=== PATIENT | female | born 1985 | race Caucasian/White ===

== ENCOUNTER 2019-06-26 23:12 | Observation (INO) | payer MEDICAID ==
[~2019-06-26] VITALS: Ht 165.1 cm; Wt 130.2 kg
[2019-06-27] MEDS ORDERED: PNV1TABL76 MT (00:43)
== END 2019-06-27 00:59 | disposition home or self-care (01) ==
LOC: 8 EST LDRP 23:12
PROVIDERS: ADMIT Obstetrics & Gynecology; ATTEND Obstetrics & Gynecology
DX: O36.8130 Decreased fetal movements, third trimester, not applicable or unspecified (principal); Z3A.34 34 weeks gestation of pregnancy
CPT/HCPCS: 76815; 76818; 99281; G0378

== ENCOUNTER 2019-07-18 09:49 | Observation (INO) | payer MEDICAID ==
[~2019-07-18] VITALS: Ht 160 cm; Wt 133.8 kg
[~2019-07-18 09:49] MED LIST: PNV1TABL76 MT
[2019-07-18] MEDS ORDERED: LACTATED RINGERS 1,000 ML IV SCH (10:45)
[2019-07-18 11:32] LABS: BASOPHILS % 0.6 % (0.0-2.0); EOSINOPHILS % 1.6 % (0.0-5.0); HEMATOCRIT. 31.3 % (36.0-48.0); HEMOGLOBIN. 10.2 g/dL (12.0-16.0); LYMPHOCYTES % 17.7 % (20.0-50.0); MEAN CORPUSCULAR HEMOGLOBIN 25.4 pg (28.0-32.0); MEAN CORPUSCULAR VOLUME 77.8 fL (81.0-99.0); MEAN PLATELET VOLUME 8.9 fl (7.4-10.4); MONOCYTES % 6.2 % (2.0-8.0); NEUTROPHILS % 73.9 % (40.0-76.0); PLATELET 345 x1000/uL (130-400); RED BLOOD CELL COUNT 4.03 mill/uL (4.2-5.4); RED CELL DISTRIBUTION WIDTH 15.9 % (11.6-14.6)
[2019-07-18 11:46] LABS: CLARITY URINE CLOUDY (CLEAR); COLOR URINE YELLOW (YELLOW); KETONES URINE 2+ (NEGATIVE); LEUKOCYTE ESTERASE URINE TRACE (NEGATIVE); NITRITE URINE NEGATIVE (NEGATIVE); OCCULT BLOOD URINE NEGATIVE (NEGATIVE); PH URINE 5.5 (4.5-8.0); PROTEIN URINE 1+ (NEGATIVE); SPECIFIC GRAVITY URINE 1.021 (1.005-1.030)
[2019-07-18 12:00] LABS: D-DIMER 2.89 mg/L FEU (<0.50); INR 0.8; PROTHROMBIN TIME 9.2 sec (9.6-11.0)
[2019-07-18 12:20] LABS: CHLORIDE 112 mEq/L (98-107)
== END 2019-07-18 13:05 | disposition home or self-care (01) ==
LOC: 8 EST LDRP 09:49
PROVIDERS: ADMIT Obstetrics & Gynecology; ATTEND Obstetrics & Gynecology
DX: O13.3 Gestational [pregnancy-induced] hypertension without significant proteinuria, third trimester (principal); Z3A.37 37 weeks gestation of pregnancy
CPT/HCPCS: 36415; 76805; 76818; 80053; 81003; 84550; 85025; 85379; 85384; 85610; 85730; 99281; G0378; 96360; 96361

== ENCOUNTER 2019-07-20 07:10 | Inpatient (IN) | payer MEDICAID ==
[~2019-07-20] VITALS: Ht 160 cm; Wt 131.5 kg
[2019-07-20] MEDS ORDERED: LACTATED RINGERS 1,000 ML IV SCH (07:29)
[2019-07-20] MEDS ORDERED: RHO(D) IMMUNE GLOBULIN 300 MCG/SYR IM NR (07:30)
[2019-07-20] MEDS ORDERED: GLYCOPYRROLATE 0.2 MG/ML 2ML VIAL ONE (08:04)
[2019-07-20] MEDS ORDERED: EPHEDRINE SULFATE 50MG/ML VIAL ONE (08:04)
[2019-07-20] MEDS ORDERED: PHENYLEPHRINE HCL 10 MG/ML 1ML (IV VIAL) IV ONE (08:04)
[2019-07-20] MEDS ORDERED: ONDANSETRON HCL 4MG/2ML INJ ONE (08:04)
[2019-07-20] MEDS ORDERED: OXYTOCIN 10 UNITS/ML 1ML ONE (08:04)
[2019-07-20] MEDS ORDERED: MORPHINE SULFATE/PF 1MG/ML 10ML AMP ONE (08:04)
[2019-07-20] MEDS ORDERED: FENTANYL CITRATE/PF 50MCG/ML 2ML VIAL ONE (08:04)
[2019-07-20] MEDS ORDERED: CEFAZOLIN SODIUM 1000MG/VIAL ONE ×2 (08:05→08:50)
[2019-07-20] MEDS ORDERED: STERILE WATER FOR INJECTION 10ML VIAL ONE (08:06)
[2019-07-20] MEDS ORDERED: CITRIC ACID/SODIUM CITRATE SOLN 30ML UDC PO NR (08:15)
[2019-07-20 08:28] LABS: BASOPHILS % 0.7 % (0.0-2.0); EOSINOPHILS % 1.4 % (0.0-5.0); HEMATOCRIT. 31.2 % (36.0-48.0); HEMOGLOBIN. 10.1 g/dL (12.0-16.0); MEAN CORPUSCULAR HEMOGLOBIN 24.8 pg (28.0-32.0); MEAN CORPUSCULAR VOLUME 76.6 fL (81.0-99.0); MEAN PLATELET VOLUME 8.9 fl (7.4-10.4); MONOCYTES % 6.4 % (2.0-8.0); NEUTROPHILS % 72.5 % (40.0-76.0); PLATELET 332 x1000/uL (130-400); RED BLOOD CELL COUNT 4.07 mill/uL (4.2-5.4); RED CELL DISTRIBUTION WIDTH 15.8 % (11.6-14.6)
[2019-07-20 08:37] LABS: INR 0.9; PARTIAL THROMBOPLASTIN TIME 28.8 sec (23.4-31.0); PROTHROMBIN TIME 9.4 sec (9.6-11.0)
[2019-07-20] MEDS ORDERED: METOCLOPRAMIDE HCL 10MG/2ML VIAL ONE (09:09)
[2019-07-20] MEDS ORDERED: KETOROLAC 60MG/2ML VIAL IM ONE (09:25)
[2019-07-20] MEDS ORDERED: DIPHENHYDRAMINE 50MG/ML VIAL ONE (09:25)
[2019-07-20] MEDS ORDERED: DEXT 5%/LR + PITOCIN 20UNITS/L 1,000 ML IV SCH (09:52)
[2019-07-20] MEDS ORDERED: RHO(D) IMMUNE GLOBULIN 300 MCG/SYR IM PRN (10:00)
[2019-07-20] MEDS ORDERED: DIPHENHYDRAMINE 25MG CAPSULE PO PRN (10:00)
[2019-07-20] MEDS ORDERED: LANOLIN OINT 7GM TUBE TOP PRN (10:00)
[2019-07-20] MEDS ORDERED: HYDROCODONE/ACETAMINOPHEN 5/325MG TABLET PO PRN (10:00)
[2019-07-20] MEDS ORDERED: IBUPROFEN 400MG TABLET PO PRN (10:00)
[2019-07-20] MEDS ORDERED: BISACODYL 10MG SUPP PR PRN (10:00)
[2019-07-20] MEDS ORDERED: ONDANSETRON HCL 4MG/2ML INJ IV PRN (10:00)
[2019-07-20] MEDS ORDERED: HEMORRHOIDAL SUPP PR PRN (10:00)
[2019-07-20] MEDS ORDERED: DIPHENHYDRAMINE 50MG/ML VIAL IV PRN (10:45)
[2019-07-20] MEDS: KETOROLAC 30MG/ML VIAL IV SCH ×2 (10:45→17:15)
[2019-07-20] MEDS ORDERED: NALOXONE HCL 0.4 MG/ML 1ML VIAL IV PRN (10:45)
[2019-07-20] MEDS ORDERED: BUTORPHANOL TARTRATE 2 MG/ML VIAL IV PRN (10:45)
[2019-07-20] MEDS ORDERED: CEFAZOLIN 2,000 MG in DEXT 5% WATER 100 ML IV SCH (11:00)
[2019-07-20 11:20] LABS: HEPATITIS B SURFACE ANTIGEN NEGATIVE
[2019-07-20 11:45] VITALS: BP 103/69
[2019-07-20 12:15] VITALS: BP 110/51
[2019-07-20] MEDS: MAGNESIUM/ALUMINUM HYDROXIDE/SIMETHICONE 30ML UDC PO SCH ×3 (12:30→21:51)
[2019-07-20 13:00] VITALS: BP 110/59
[2019-07-20] MEDS: SIMETHICONE 80MG TABLET CHEW PO SCH ×3 (13:00→21:51)
[2019-07-20 14:54] LABS: CLARITY URINE CLEAR (CLEAR); COLOR URINE YELLOW (YELLOW); KETONES URINE 3+ (NEGATIVE); LEUKOCYTE ESTERASE URINE NEGATIVE (NEGATIVE); NITRITE URINE NEGATIVE (NEGATIVE); OCCULT BLOOD URINE 2+ (NEGATIVE); PH URINE 5.5 (4.5-8.0); PROTEIN URINE 2+ (NEGATIVE); SPECIFIC GRAVITY URINE 1.025 (1.005-1.030)
[2019-07-20 15:28] LABS: *AMPHETAMINES SCREEN URINE NEGATIVE (NEGATIVE); *BARBITURATES SCREEN URINE NEGATIVE (NEGATIVE); *BENZODIAZEPINES SCREEN URINE NEGATIVE (NEGATIVE); *COCAINE SCREEN URINE NEGATIVE (NEGATIVE); METHADONE URINE SCREEN NEGATIVE (NEGATIVE); OPIATES URINE SCREEN NEGATIVE (NEGATIVE)
[2019-07-20 15:29] LABS: CANNABINOID URINE SCREEN NEGATIVE (NEGATIVE); PHENCYCLIDINE URINE SCREEN NEGATIVE (NEGATIVE)
[2019-07-20] MEDS ORDERED: TETANUS, DIPHTHERIA, PERTUSSIS VAC/PF 0.5ML (>7YR OLD) IM ONE (17:15)
[2019-07-20 19:50] VITALS: BP 104/65
[2019-07-20] MEDS: DOCUSATE SODIUM 100MG CAPSULE PO SCH (21:51)
[2019-07-21] MEDS ORDERED: KETOROLAC 30MG/ML VIAL IV SCH (00:45)
[2019-07-21 04:20] VITALS: BP 109/64
[2019-07-21 06:37] LABS: BASOPHILS % 0.4 % (0.0-2.0); EOSINOPHILS % 1.6 % (0.0-5.0); HEMOGLOBIN. 9.1 g/dL (12.0-16.0); LYMPHOCYTES % 15.9 % (20.0-50.0); MEAN CORPUSCULAR HEMOGLOBIN 25.7 pg (28.0-32.0); MEAN CORPUSCULAR VOLUME 76.3 fL (81.0-99.0); MEAN PLATELET VOLUME 9.2 fl (7.4-10.4); MONOCYTES % 7.2 % (2.0-8.0); NEUTROPHILS % 74.9 % (40.0-76.0); PLATELET 272 x1000/uL (130-400); RED BLOOD CELL COUNT 3.54 mill/uL (4.2-5.4); RED CELL DISTRIBUTION WIDTH 15.8 % (11.6-14.6)
[2019-07-21 07:45] VITALS: BP 127/76
[2019-07-21] MEDS: MAGNESIUM/ALUMINUM HYDROXIDE/SIMETHICONE 30ML UDC PO SCH ×4 (08:15→22:03)
[2019-07-21] MEDS: SIMETHICONE 80MG TABLET CHEW PO SCH ×4 (08:15→22:03)
[2019-07-21] MEDS: FERROUS SULFATE 325MG TABLET PO SCH ×3 (08:15→17:59)
[2019-07-21] MEDS: PRENATAL VIT/FE FUMARATE/FA TABLET PO SCH (08:15)
[2019-07-21] MEDS: IBUPROFEN 800MG TABLET PO PRN (14:52)
[2019-07-21 15:17] VITALS: BP 107/56
[2019-07-21 20:00] VITALS: BP 123/75
[2019-07-21] MEDS: DOCUSATE SODIUM 100MG CAPSULE PO SCH (22:03)
[2019-07-22 07:45] VITALS: BP 106/79
[2019-07-22] MEDS: SIMETHICONE 80MG TABLET CHEW PO SCH (08:05)
[2019-07-22] MEDS: FERROUS SULFATE 325MG TABLET PO SCH (08:05)
[2019-07-22] MEDS: IBUPROFEN 800MG TABLET PO PRN (08:05)
[2019-07-22] MEDS: PRENATAL VIT/FE FUMARATE/FA TABLET PO SCH (08:05)
[2019-07-22] MEDS: MAGNESIUM/ALUMINUM HYDROXIDE/SIMETHICONE 30ML UDC PO SCH (08:06)
== END 2019-07-22 11:15 | disposition home or self-care (01) | DRG 540 ==
LOC: 8 EST LDRP 07:10 → OBSVTOIN 07:10 → 8EST 11:31
PROVIDERS: ADMIT Obstetrics & Gynecology; ATTEND Obstetrics & Gynecology
PROC: 10D00Z1 Extraction of Products of Conception, Low, Open Approach (ICD-10-PCS; principal; 2019-07-20)
PROC: 0UB70ZZ Excision of Bilateral Fallopian Tubes, Open Approach (ICD-10-PCS; 2019-07-20)
DX: O34.211 Maternal care for low transverse scar from previous cesarean delivery (principal); D62 Acute posthemorrhagic anemia; O24.429 Gestational diabetes mellitus in childbirth, unspecified control; O36.63X0 Maternal care for excessive fetal growth, third trimester, not applicable or unspecified; O99.214 Obesity complicating childbirth; O99.02 Anemia complicating childbirth; O13.4 Gestational [pregnancy-induced] hypertension without significant proteinuria, complicating childbirth; Z37.0 Single live birth; Z30.2 Encounter for sterilization; Z3A.38 38 weeks gestation of pregnancy
CPT/HCPCS: 36415; 80305; 81003; 85025; 86592; 86703; 86762; 86850; 86900; 86920; 87340; 88302; 88307; 90715; A4216; J0690; J1200; J1885; J2274; J2370; J2405; J2590; J2765; J3010; J3490; J7060